=== PATIENT | male | born 1985 | race Hispanic/Latino ===

== ENCOUNTER 2017-11-30 10:01 | Outpatient (CLI) | payer BC, OTHER | END 2017-11-30 10:02 | disposition home or self-care (01) | LOC: CTENTCT 10:01 | PROVIDERS: ATTEND Otolaryngology Plastic Surgery within the Head & Neck | DX: J32.9 Chronic sinusitis, unspecified (principal) | CPT/HCPCS: 70486 ==

== ENCOUNTER 2017-12-27 06:59 | Day surgery (SDC) | payer BC ==
[2017-12-26 11:53] VITALS: BMI 27.0
[2017-12-27] MEDS ORDERED: Oxymetazoline HCl 0.05% ( 15 ML ) ONE ×2 (07:20→09:00)
[2017-12-27] MEDS ORDERED: Midazolam HCl 2 mg/2 ml Vial ONE (08:59)
[2017-12-27] MEDS ORDERED: Fentanyl 100 MCG/2 ML VIAL ONE ×2 (08:59→10:12)
[2017-12-27] MEDS ORDERED: Bacitracin Zinc Ointment 30 gm TUBE ONE (09:00)
[2017-12-27] MEDS ORDERED: Lidocaine 1% w/Epinephrine 1:100K 30 ML VIAL ONE (09:00)
[2017-12-27] MEDS ORDERED: HYDROcodone/Acetaminophen 5/325 mg Tablet ONE (11:25)
--- NOTE | 2017-12-28 13:18 | OP ---
DATE OF PROCEDURE: 12/27/2017 PREOPERATIVE DIAGNOSES: 1. Chronic rhinosinusitis. 2. Nasal septal deviation. 3. Bilateral inferior turbinate hypertrophy. 4. Nasal obstruction. POSTOPERATIVE DIAGNOSES: 1. Chronic rhinosinusitis. 2. Nasal septal deviation. 3. Bilateral inferior turbinate hypertrophy. 4. Nasal obstruction. PROCEDURES: 1. Bilateral endoscopic sinus surgery, total ethmoidectomies. 2. Bilateral endoscopic sinus surgery, maxillary antrostomies. 3. Bilateral endoscopic sinus surgery, frontal sinusotomies. 4. Bilateral endoscopic sinus surgery, sphenoidotomies. 5. Nasal septoplasty. 6. Bilateral inferior turbinate submucosal resection. SURGEON: Randal Prabhakar M.D. ESTIMATED BLOOD LOSS: Less than 20 mL. COMPLICATIONS: None. ANESTHESIA: GETA. PROCEDURE IN DETAIL: Patient was taken to the operating room and placed supine on the table. General endotracheal anesthesia was obtained by the Anesthesia staff. Tube was secured in the left lower lip. Patient was then placed in the beach chair position, and Afrin pledgets were placed in the nasal cavity. Injections of 1% lidocaine with 1:100,000 epinephrine were made into the nasal septum as well as the inferior turbinates. [facility] in standard surgical fashion for nasal surgery. Following this, the Afrin pledgets were removed. A Ki llian incision was made on the left nasal septum. Submucoperichondrial dissection was performed. The deviated portions of the septum included portions of the cartilage and the bony septum. These isolate d areas were removed using three cutting rongeurs. There was noted to be a large dorsal and caudal stru t, left intact for support of the nose. The mucoperichondrial flaps were then reapproximated using a 4-0 gut stitch. Any straight pieces of cartilage were crushed prior to this and placed between the mucoperichondrial flaps. Following this, the inferior turbinates were then punctured with a submucosa l coblation wand, and submucosal coblations were performed of multiple areas of the inferior portion of the anterior inferior turbinate. Please note that the submucosal microdebrider was used to submucosally resect the anterior and inferi or portions of the inferior turbinates bilaterally. Following this, the 0 degree scope was advanced in the middle meatus. The middle turbinate was gently medialized with a Leonore elevator bilaterally. Following this, the uncinate process was identified bilaterally and was anteriorly fractured using t he ball-ended probe. Using the curved microdebrider and the upbiting Blakesley forceps, the uncinate process was then removed bilaterally. Following this, the natural maxillary sinus ostia was identif ied and was punctured using the microdebrider bilaterally. Following this, the ethmoidal bulla on it s medial and inferior aspect. Following this, the ethmoidal bulla was removed using the microdebride r and upbiting Blakesley forceps. Following this, the grand lamella was identified and was then punc tured into the posterior ethmoidal cell. Working from posterior to anterior, the ethmoidal cells wer e opened bilaterally with the microdebrider and upbiting Shaunna forceps. Following this, the 45 de gree scope and the curved microdebrider were used to further open the frontal recess cells exposing t he frontal sinus ostia. The frontal sinus ostia was then gently widened using the microdebrider lucio charlton. Following this, the 0 degree scope and 0 degree endoscope was advanced in the posterior clarke al wall where the attachment of the superior turbinate was identified as it passed to the posterior n liliana wall. Staying just medial and inferior to this sphenoidotomies were created bilaterally and wer e widened medially and inferiorly using the 0 degree microdebrider. Following this, the nasal cavity was irrigated. MeroPacks were placed in the middle meatus. Shea splints were placed and secured. The patient tolerated the procedure well.
== END 2017-12-27 12:30 | disposition home or self-care (01) ==
LOC: SDC 06:59
PROVIDERS: ATTEND Otolaryngology Plastic Surgery within the Head & Neck
DX: J32.9 Chronic sinusitis, unspecified (principal); J34.2 Deviated nasal septum; J34.3 Hypertrophy of nasal turbinates; G43.909 Migraine, unspecified, not intractable, without status migrainosus; F41.9 Anxiety disorder, unspecified; J35.1 Hypertrophy of tonsils; J30.9 Allergic rhinitis, unspecified
CPT/HCPCS: 96374; J2001; J2250; J3010